=== PATIENT | female | born 1955 ===

== ENCOUNTER 2017-01-28 05:47 | Emergency (ER) | payer OTHER ==
[2017-01-28 05:56] VITALS: BMI 31.8
--- NOTE | 2017-01-28 05:56 | ED PDOC ---
Arrival/HPI - General Time Seen by Provider: 01/28/17 05:51 Historian: Patient - History of Present Illness Narrative History of Present Illness (Text): 01/28/17 05:53 Cecile Millan is a 61 year old female who presents to the Emergency department status post mechanical fall with left wrist pain. Patient states she tripped and fell on to left arm prior to arrival. Patient denies any weakness/numbness/ tingling in the extremity, chest pain, shortness of breath, or any other complaints. Time/Duration: Prior to Arrival Symptom Onset: Sudden Symptom Course: Unchanged Activities at Onset: Light Context: Home Past Medical History - Provider Review Nursing Documentation Reviewed: Yes Family/Social History - Physician Review Nursing Documentation Reviewed: Yes Family/Social History: Unknown Family HX Allergies/Home Meds Allergies/Adverse Reactions: Allergies No Known Allergies Allergy (Verified 01/28/17 05:54) Review of Systems - Physician Review All systems were reviewed & negative as marked: Yes - Review of Systems Constitutional: Normal. absent: Fevers Eyes: Normal ENT: Normal Respiratory: Normal. absent: SOB, Cough Cardiovascular: Normal. absent: Chest Pain Gastrointestinal: Normal Genitourinary Female: Normal Musculoskeletal: Arthralgias (+left wrist pain). absent: Back Pain, Neck Pain Neurological: Normal Psychiatric: Normal Physical Exam Vital Signs Reviewed: Yes Vital Signs Temp Pulse Resp BP Pulse Ox 01/28/17 05:56 98.7 F 91 H 18 137/97 H 98 Temperature: Afebrile Blood Pressure: Normal Pulse: Regular Respiratory Rate: Normal Appearance: Positive for: Well-Appearing, Non-Toxic, Comfortable Pain Distress: None Mental Status: Positive for: Alert and Oriented X 3 - Systems Exam Head: Present: Atraumatic, Normocephalic Pupils: Present: PERRL Extroacular Muscles: Present: EOMI Conjunctiva: Present: Normal Mouth: Present: Moist Mucous Membranes Upper Extremity: Present: Swelling (Swelling/tenderness to left wrist), Neurovascularly Intact, Capillary Refill < 2s. No: Cyanosis, Edema, Erythema Lower Extremity: Present: Normal Inspection, Tenderness. No: Edema Neurological: Present: GCS=15, CN II-XII Intact, Speech Normal Skin: Present: Warm, Dry, Normal Color. No: Rashes Psychiatric: Present: Alert, Oriented x 3, Normal Insight, Normal Concentration Medical Decision Making ED Course and Treatment: 01/28/17 05:53 Impression: 61 year old female complaining of left wrist pain s/p mechanical fall. Differential Diagnosis include but are not limited to: fracture vs. contusion vs. sprain Plan: -- XR Left Wrist -- Percocet -- Reassess and disposition Progress Notes: - RAD Interpretation Radiology Orders: 01/28/17 06:07 WRIST, LEFT 3 VIEWS [RAD] Stat - Medication Orders Current Medication Orders: Discontinued Medications Oxycodone/Acetaminophen (Percocet 5/325 Mg Tab) 1 tab PO STAT STA Stop: 01/28/17 06:09 Last Admin: 01/28/17 06:19 Dose: 1 tab - Transfer of Care Patient signed out to Dr:: Don Pending Radiology Studies:: Xray/eval/ortho consult.reevaluation/disposition - Scribe Statement The provider has reviewed the documentation as recorded by the Scribe Orly Kern All medical record entries made by the Scribe were at my direction and personally dictated by me. I have reviewed the chart and agree that the record accurately reflects my personal performance of the history, physical exam, medical decision making, and the department course for this patient. I have also personally directed, reviewed, and agree with the discharge instructions and disposition. Disposition/Present on Arrival - Present on Arrival Any Indicators Present on Arrival: No - Disposition Have Diagnosis and Disposition been Completed?: No Diagnosis: Wrist injury Disposition Time: 07:00 Condition: GOOD
[2017-01-28 05:57] VITALS: TEMP 98.7
[2017-01-28] MEDS ORDERED: Oxycodone/Acetaminophen 5/325 mg Tab PO STA (06:08)
[2017-01-28] MEDS ORDERED: Bupivacaine 0.25% Inj(30mL) IJ STA ×2 (07:20→07:33)
--- NOTE | 2017-01-28 08:11 | ED PDOC ---
Physical Exam Vital Signs Reviewed: Yes Vital Signs Temp Pulse Resp BP Pulse Ox 01/28/17 05:56 98.7 F 91 H 18 137/97 H 98 Medical Decision Making ED Course and Treatment: 01/28/17 08:09 Xray of wrist shows distal radius fracture. Spoke with Dr. Arceo, will do a reduction and splint. Patient can follow up with him in office tomorrow. PROCEDURE: REDUCTION Performed by the emergency provider Time: 07:30 Consent: Informed consent, after discussion of the risks, benefits, and alternatives to the procedure, was obtained. Timeout: A timeout to verify the correct patient, procedure, and site was performed immediately prior to the procedure. Indication: distal radius fracture Location: left wrist Sedation: .25% bupivacaine. See MAR for details. Pre-procedure neurovascular status: Distal neurovascular status intact. Technique: hematoma block Post-procedure neurovascular status: Distal neurovascular status remains intact. Confirmation: Post-reduction films confirm reduction. See post-procedure X-Ray interpretation. Post-procedure: Patient tolerated the procedure well with no immediate complications. The reduction site was immobilized with a sugar tong splint. 900 post reduction films appear similar to prior, was unable to completely reduce. splint placed. pt to follow up with ortho tomorrow. - RAD Interpretation Radiology Orders: 01/28/17 06:07 WRIST, LEFT 3 VIEWS [RAD] Stat - Medication Orders Current Medication Orders: Discontinued Medications Bupivacaine HCl (Marcaine 0.25%) 0 ml IJ STAT STA Stop: 01/28/17 07:34 Oxycodone/Acetaminophen (Percocet 5/325 Mg Tab) 1 tab PO STAT STA Stop: 01/28/17 06:09 Last Admin: 01/28/17 06:19 Dose: 1 tab Re-Assess: [facility] Pain Assessment Document 01/28/17 07:19 HI (Rec: 01/28/17 07:37 RI [id number]) Pain Reassessment Is this a pain reassessment? Yes Sleep Is patient sleeping during reassessment? Yes - Scribe Statement The provider has reviewed the documentation as recorded by the Courtneyibdarren Looney Provider Scribe Attestation: All medical record entries made by the Scribe were at my direction and personally dictated by me. I have reviewed the chart and agree that the record accurately reflects my personal performance of the history, physical exam, medical decision making, and the department course for this patient. I have also personally directed, reviewed, and agree with the discharge instructions and disposition. Disposition/Present on Arrival - Present on Arrival Any Indicators Present on Arrival: No History of DVT/PE: No History of Uncontrolled Diabetes: No Urinary Catheter: No History of Decub. Ulcer: No History Surgical Site Infection Following: None - Disposition Have Diagnosis and Disposition been Completed?: Yes Diagnosis: Distal radius fracture Disposition: HOME/ ROUTINE Disposition Time: 09:10 Condition: GOOD Discharge Instructions (ExitCare): Splint Care (ED) Additional Instructions: Please follow up with the bone specialist. Call today to make an appointment tomorrow. Return to the ER for any worsening symptoms, uncontrolled pain, numbness, weakness, or for any other concerns. Prescriptions: Acetaminophen with Codeine [Tylenol with Codeine #3 Tablet] 1 each PO Q4H PRN # 10 tablet PRN Reason: Pain, Moderate (4-7) Referrals: Valentin Arceo III, MD [Medical Doctor] - Follow up with primary
[2017-01-28 09:13] VITALS: BP 125/87; PULSE 72; RESP 16; O2SAT 97
--- NOTE | 2017-01-28 09:29 | RAD ---
PROCEDURE: Left Wrist Radiographs. HISTORY: post reduction COMPARISON: None. FINDINGS: BONES: There is a transverse angulated fracture of the distal radius. A plaster cast is now in place JOINTS: Normal. No dislocation. SOFT TISSUES: Normal. OTHER FINDINGS: None. IMPRESSION: There is a transverse angulated fracture of the distal radius. A plaster cast is now in place
--- NOTE | 2017-01-28 09:34 | RAD ---
PROCEDURE: Left Wrist Radiographs. HISTORY: injury COMPARISON: None. FINDINGS: BONES: There is a transverse comminuted fracture of the distal radius with dorsal angulation JOINTS: Normal. No dislocation. SOFT TISSUES: Normal. OTHER FINDINGS: None. IMPRESSION: There is a transverse comminuted fracture of the distal radius with dorsal angulation
== END 2017-01-28 09:10 | disposition home or self-care (01) ==
LOC: ED 05:47
DX: S69.92XA Unspecified injury of left wrist, hand and finger(s), initial encounter (principal); W01.0XXA Fall on same level from slipping, tripping and stumbling without subsequent striking against object, initial encounter; Y93.89 Activity, other specified; Y92.009 Unspecified place in unspecified non-institutional (private) residence as the place of occurrence of the external cause

== ENCOUNTER 2018-08-19 13:15 | Outpatient (CLI) | payer OTHER | END 2018-08-19 13:16 | disposition home or self-care (01) | LOC: RAD 13:15 ==